=== PATIENT | male | born 1960 | race Caucasian/White ===

== ENCOUNTER 2017-12-22 09:16 | Observation (INO) | payer OTHER ==
[~2017-12-22] VITALS: Ht 162.6 cm; Wt 77.1 kg
--- NOTE | 2017-12-22 12:35 | ED GENERAL ADULT ---
History of Present Illness General Chief Complaint: Neck/Upper Back Pain/Injury Stated Complaint: NECK PAIN/DIZZY Vital Signs & Intake/Output Vital Signs & Intake/Output Vital Signs Date Time Temp Pulse Resp B/P B/P Pulse O2 O2 Flow FiO2 Mean Ox Delivery Rate 12/22 0957 98.0 92 20 185/100 Allergies Coded Allergies: NO KNOWN ALLERGIES (03/19/11) Triage Note: PER PT NECK PAIN FOR A COUPLE WEEKS FEELS LIKE IT SHOOTS UP INTO HEAD AND I BLACK OUT, HAS NOT SEEN MEDICAL HELP FOR SYMPTOMS Past History Travel History Traveled to [place] past 21 day No Medical History Neurological: NONE EENT: NONE Cardiovascular: hypertension Respiratory: NONE Gastrointestinal: NONE Hepatic: NONE Renal: NONE Musculoskeletal: NONE Psychiatric: RECOVERING ADDICT X 20 YR Psychosocial History Who do you live with Patient/Self What is your primary language Citizen Of [place] Tobacco Use: Never used Progress Plan of Care: Orders Procedure Date/time Status EKG 12/22 1234 Active Departure Departure Condition: Stable Referrals: Júnior Arnett MD (PCP/Family) Departure Forms: Customer Survey General Discharge Information
[2017-12-22 13:28] LABS: ABSOLUTE BASOPHIL COUNT 0.1 /CUMM (0.0-0.2); ABSOLUTE EOSINOPHIL COUNT 0 /CUMM (0.0-0.7); ABSOLUTE GRANULOCYTE CT 7.1 /CUMM (1.4-6.5); ABSOLUTE LYMPH COUNT 2.5 /CUMM (1.2-3.4); ABSOLUTE MONOCYTE COUNT 0.6 /CUMM (0.10-0.60); BASOPHIL % 0.5 % (0.0-2.0); EOSINOPHIL % 0.4 % (0-5); GRANULOCYTE % 68.7 % (42.2-75.2); HEMATOCRIT 45.5 % (42-52); MEAN CORPUSCULAR HGB 28.7 PG (27.0-31.0); MEAN CORPUSCULAR VOLUME 84.5 FL (80.0-94.0); MEAN PLATELET VOLUME 8.4 FL (7.4-10.4); PLATELET COUNT 322 /CUMM (130-400); RBC DISTRIBUTION WIDTH 12.8 % (11.5-14.5); RED BLOOD CELL CT 5.39 /CUMM (4.70-6.10); WHITE BLOOD CELL COUNT 10.3 /CUMM (4.8-10.8)
--- NOTE | 2017-12-22 14:45 | ED GENERAL ADULT ---
History of Present Illness General Chief Complaint: Neck/Upper Back Pain/Injury Stated Complaint: NECK PAIN/DIZZY Source: patient Exam Limitations: no limitations Vital Signs & Intake/Output Vital Signs & Intake/Output Vital Signs Date Time Temp Pulse Resp B/P B/P Pulse O2 O2 Flow FiO2 Mean Ox Delivery Rate 12/23 09 78 128/78 12/23 0644 97.8 78 20 128/78 97 Room Air 12/22 1948 97.9 74 129/74 12/22 1852 72 20 131/87 96 Room Air 12/22 1721 89 19 128/71 97 Room Air 12/22 1422 97.8 94 18 149/78 95 ED Intake and Output 12/23 0000 12/22 1200 Intake Total 420 Output Total 275 Balance 145 Intake, Oral 420 Output, Urine 275 Patient 170 lb 170 lb Weight Allergies Coded Allergies: NO KNOWN ALLERGIES (03/19/11) Triage Note: PER PT NECK PAIN FOR A COUPLE WEEKS FEELS LIKE IT SHOOTS UP INTO HEAD AND I BLACK OUT, HAS NOT SEEN MEDICAL HELP FOR SYMPTOMS Triage Nurses Notes Reviewed? yes Onset: Gradual Duration: day(s): Timing: recent history Injury Environment: home Severity: moderate HPI: 57yo male with hx of HTN presents to ED complaining of intermittent posterior neck pain x 1 week. Patient also reports episodes of presyncope and syncope within the past week. Patient states that he experiences lightheadedness, dizziness, neck pain dramatically and twice he has passed out. Patient states that he felt as though he is going to pass out, his vision went dark, he woke up on the ground. Patient has no history of syncope prior to this past week. Patient states that he believes neck pain is related to positional changes at times such as bending down. Patient denies recent head or neck trauma, chest pain, dyspnea, abdominal pain, nausea, vomiting, visual changes. (Emiliana VIZCARRA,Shy Mora) Reconcile Medications Losartan (Cozaar) 100 MG TABLET 1 TAB PO DAILY BP (Reported) (Don HERNANDEZ,Dee) Past History Travel History Traveled to [place] past 21 day No Medical History Any Pertinent Medical History? see below for history Neurological: NONE EENT: NONE Cardiovascular: hypertension Respiratory: NONE Gastrointestinal: NONE Hepatic: NONE Renal: NONE Musculoskeletal: NONE Psychiatric: RECOVERING ADDICT X 20 YR Surgical History Surgical History: non-contributory Psychosocial History Who do you live with Patient/Self What is your primary language Yi Tobacco Use: Never used Family History Hx Contributory? No (Shy Sumner) Review of Systems Review of Systems Constitutional: Reports: see HPI. EENTM: Reports: no symptoms. Respiratory: Reports: no symptoms. Cardiovascular: Reports: see HPI. GI: Reports: no symptoms. Genitourinary: Reports: no symptoms. Musculoskeletal: Reports: see HPI. Skin: Reports: no symptoms. Neurological/Psychological: Reports: see HPI. Hematologic/Endocrine: Reports: no symptoms. Immunologic/Allergic: Reports: no symptoms. All Other Systems: Reviewed and Negative (Shy Sumner) Physical Exam Physical Exam General Appearance: well developed/nourished, no apparent distress, alert, awake Head: atraumatic, normal appearance Eyes: Bilateral: normal appearance, PERRL, EOMI, other (mild anisocoria). Ears, Nose, Throat: normal pharynx, hearing grossly normal Neck: normal inspection, supple, full range of motion, midline tenderness without step offs or deformity Respiratory: normal breath sounds, no respiratory distress, lungs clear Cardiovascular: regular rate/rhythm Peripheral Pulses: 2+ radial (R), 2+ radial (L) Gastrointestinal: normal bowel sounds, soft, non-tender, no organomegaly Back: normal inspection, normal range of motion Extremities: normal inspection, normal range of motion Neurologic/Psych: no motor/sensory deficits, awake, alert, oriented x 3, histopath tech II- XII nml as tested, Cerebellar testing WNL Skin: intact, normal color, warm/dry Core Measures ACS in differential dx? Yes CVA/TIA Diagnosis: No Sepsis Present: No Sepsis Focused Exam Completed? No (Shy Sumner) Progress Differential Diagnoses I considered the following diagnoses in my evaluation of the patient: [ Hypertensive urgency, carotid dissection, vertebrobasillar insufficiency, CVA/ TIA, ACS, PE, valvular disease, orthostatic hypotension, drug intoxication] Plan of Care: Orders Procedure Date/time Status Regular Diet 12/23 B Active Change service to 12/23 0751 Active CBC WITHOUT DIFFERENTIAL 12/23 599 Complete BASIC ELECTROLYTES PLUS BUN&CR 12/23 06 Complete TROPONIN LEVEL 12/23 0300 Complete EKG 12/23 0300 Active ECHOCARDIOGRAM 12/23 UNK Active Teach/Educate 02/05 2022 Active Pain Treatment and Response 12/22 2021 Active Nutritional Intake, Monitor 12/22 2021 Active Isolation 12/22 2021 Active Patient Care Conference 12/22 2021 Active Activity/Ambulation 12/22 2021 Active TROPONIN LEVEL 12/22 1900 Complete Intake & Output 12/22 1848 Active Pathway - chart 12/22 182 Active Code Status 12/22 1821 Active Patient Data 12/22 1653 Active URINE DRUGS OF ABUSE 12/[address] in observation 12/22 162 Active ED Holding Orders 12/22 1621 Active Vital Signs 12/22 1621 Active Code Status 12/22 1621 Complete D-DIMER 12/22 1340 Complete EKG 12/22 1100 Active House Staff 12/22 UNK Active VTE Mechanical Prophylaxis 12/22 UNK Active Vital Signs 12/22 UNK Complete Current Medications Sig/Wang Start time Last Medication Dose Stop Time Status Admin Enoxaparin Sodium 40 MG DAILY 12/23 1000 AC (Lovenox) Losartan Potassium 100 MG DAILY 12/23 1000 AC 12/23 (Cozaar) 0926 Acetaminophen 650 MG Q6P PRN 12/22 1830 AC (Tylenol) Laboratory Tests 12/23/17 0630: Anion Gap 14, Estimated GFR > 60, BUN/Creatinine Ratio 21.1, CBC w Diff NO MAN DIFF REQ, RBC 4.91, MCV 85.2, MCH 28.9, MCHC 34.0, RDW 13.1, MPV 8.5, Gran % 64.2, Lymphocytes % 28.2, Monocytes % 6.1, Eosinophils % 1.1, Basophils % 0.4, Absolute Granulocytes 5.1, Absolute Lymphocytes 2.2, Absolute Monocytes 0.5, Absolute Eosinophils 0.1, Absolute Basophils 0 12/23/17 0300: Troponin I < 0.01 12/22/17 2100: Urine Opiates Screen < 100.00, Methadone Screen < 40, Barbiturate Screen < 60, Ur Phencyclidine Scrn < 6.00, Amphetamines Screen < 100, U Benzodiazepines Scrn < 85, Urine Cocaine Screen < 50, Urine Cannabis Screen < 5.00 12/22/17 2035: Troponin I < 0.01 12/22/17 1340: D-Dimer High Sensitivty < 200 12/22/17 1310: Anion Gap 16, Estimated GFR > 60, BUN/Creatinine Ratio 18.0, Glucose 101 H, Calcium 10.2, Total Bilirubin 0.6, AST 20, ALT 48, Alkaline Phosphatase 132 H, Troponin I < 0.01, Total Protein 7.5, Albumin 4.7, Globulin 2.8, Albumin/ Globulin Ratio 1.7, CBC w Diff NO MAN DIFF REQ, RBC 5.39, MCV 84.5, MCH 28.7, MCHC 34.0, RDW 12.8, MPV 8.4, Gran % 68.7, Lymphocytes % 24.4, Monocytes % 6.0, Eosinophils % 0.4, Basophils % 0.5, Absolute Granulocytes 7.1 H, Absolute Lymphocytes 2.5, Absolute Monocytes 0.6, Absolute Eosinophils 0, Absolute Basophils 0.1 CT/CTA head and neck shows mild atherosclerosis at carotid bifurcation without other acute abnormality. Patient's troponin is negative, d-dimer negative. Remainder of blood work WNL. The patient is neurologically intact, no focal neurologic deficit. Discussed with patient with Dr. Herrera. Recommend telemetry obs given syncopal episodes for futher cardiac work up including repeat EKGs/troponins and echocardiogram. Case management consult obtained. Dr. Ochoa spoke with hospitalist, Dr. Kaminski, regarding this patient's telemetry observation. Diagnostic Imaging: Viewed by Me: CT Scan. Discussed w/RAD: CT Scan. Radiology Impression: PATIENT: EDELMIRA OSBORN PRESENT AGE: 57 PATIENT ACCOUNT NO: [id number] : 56 LOCATION: [facility] ORDERING PHYSICIAN: Shy VIZCARRA SERVICE DATE: 12/22/17 EXAM TYPE: CAT - CT HEAD ANGIOGRAM; CT NECK ANGIOGRAM EXAMINATION: CT ANGIOGRAM NECK WITH CONTRAST CT ANGIOGRAM BRAIN WITH CONTRAST CLINICAL INFORMATION: Posterior neck pain and syncope. COMPARISON: None available. TECHNIQUE: Test bolus sequences followed by intravenous administration 95 mL of Optiray 350. Helical imaging was performed in the axial plane from the thoracic inlet to the skull vertex. Delayed postcontrast imaging of the head was also performed. The data was processed at the dental technologist workstation for generation of MIP sequences. Angled MIPs and volume rendered reformatted images were also generated at an offline 3D workstation. Stenoses are assessed in accordance with NASCET criteria unless otherwise indicated. FINDINGS: BRAIN: There is no intracranial hemorrhage, hydrocephalus, extra-axial surface collection, midline shift, or other herniation pattern. Randolph to white matter differentiation is diffusely maintained without evidence of an evolved acute territorial infarct. The basilar cisterns are preserved. No significant soft tissue abnormality. No acute osseous abnormality. The paranasal sinuses and the mastoid air cells are well-aerated. CERVICAL SOFT TISSUES AND LUNG APICES: The upper lungs are clear. There are no significant soft tissue findings within the neck. NECK CTA: There is a classic 3 vessel configuration of the aortic arch. Proximal arch vessels are non-stenotic. The vertebral arteries are codominant. No significant ostial stenosis is visualized on either side. Both vertebral arteries are widely patent throughout their extracranial cervical course. The common carotid arteries are widely patent. There is mild lipid rich atherosclerotic plaque at the carotid bifurcations bilaterally without significant arterial stenosis. BRAIN CTA: There is normal opacification of major intracranial arteries. No focal flow-limiting stenosis, discrete proximal large artery occlusion, or saccular intradural aneurysm is identified. Timing of the contrast bolus allows assessment of the major dural venous sinuses, which all opacify normally. IMPRESSION: There is mild lipid rich atherosclerotic plaque at the carotid bifurcations bilaterally without significant arterial stenosis. Otherwise unremarkable CTA of the head and neck. No arterial dissection. No acute intracranial findings. DICTATED BY: sOeas Napoles MD DATE/TIME DICTATED:12/22/171454 RRTS:JACK DATE/TIME TRANSCRIBED:12/22/171454 CONFIDENTIAL, DO NOT COPY WITHOUT APPROPRIATE AUTHORIZATION. <Electronically signed in Other Vendor System> SIGNED BY: Oseas Napoles MD 12/22/17 1511 Initial ED EKG: sinus tachycardia @101bpm, nonspecific ST changes Prior EKG: changed (03/19/11) (Emiliana VIZCARRA,Shy Mora) Departure Departure Disposition: STILL A PATIENT Condition: Stable Clinical Impression Primary Impression: Syncope Secondary Impressions: Hypertension, Neck pain Referrals: Júnior Arnett MD (PCP/Family) Departure Forms: Customer Survey General Discharge Information Observation Note Spoke With: Ana Paula Kaminski MD Physician Advisor Notified: VASQUEZ HERNANDEZ,NEEL Soriano Place Patient In: Non-ED OBS Care Area Rationale for Observation: My rational for observation is as follows [syncopal episodes requiring cardiology consult, trend EKGs/troponins, telemetry monitoring, echocardiogram, premature discharge would be medically unsafe.]. (Emiliana VIZCARRA,Shy Mora) PA/SOCIAL SCIENCE MANAGER Co-Sign Statement Statement: ED Attending supervision documentation- [X] I saw and evaluated the patient. I have also reviewed all the pertinent lab results and diagnostic results. I agree with the findings and the plan of care as documented in the PA's/SOCIAL SCIENCE MANAGER's documentation. [X] I have reviewed the ED Record and agree with the PA's/SOCIAL SCIENCE MANAGER's documentation. [] Additions or exceptions (if any) to the PAs/SOCIAL SCIENCE MANAGER's note and plan are summarized below: [] (Don HERNANDEZ,Dee) Critical Care Note Critical Care Note Critical Care Time: non-applicable (Emiliana VIZCARRA,Shy Mora)
--- NOTE | 2017-12-22 15:11 | CT SCAN REPORT ---
EXAMINATION: CT ANGIOGRAM NECK WITH CONTRAST CT ANGIOGRAM BRAIN WITH CONTRAST CLINICAL INFORMATION: Posterior neck pain and syncope. COMPARISON: None available. TECHNIQUE: Test bolus sequences followed by intravenous administration 95 mL of Optiray 350. Helical imaging was performed in the axial plane from the thoracic inlet to the skull vertex. Delayed postcontrast imaging of the head was also performed. The data was processed at the polysomnographic technologist workstation for generation of MIP sequences. Angled MIPs and volume rendered reformatted images were also generated at an offline 3D workstation. Stenoses are assessed in accordance with NASCET criteria unless otherwise indicated. FINDINGS: BRAIN: There is no intracranial hemorrhage, hydrocephalus, extra-axial surface collection, midline shift, or other herniation pattern. Randolph to white matter differentiation is diffusely maintained without evidence of an evolved acute territorial infarct. The basilar cisterns are preserved. No significant soft tissue abnormality. No acute osseous abnormality. The paranasal sinuses and the mastoid air cells are well-aerated. CERVICAL SOFT TISSUES AND LUNG APICES: The upper lungs are clear. There are no significant soft tissue findings within the neck. NECK CTA: There is a classic 3 vessel configuration of the aortic arch. Proximal arch vessels are non-stenotic. The vertebral arteries are codominant. No significant ostial stenosis is visualized on either side. Both vertebral arteries are widely patent throughout their extracranial cervical course. The common carotid arteries are widely patent. There is mild lipid rich atherosclerotic plaque at the carotid bifurcations bilaterally without significant arterial stenosis. BRAIN CTA: There is normal opacification of major intracranial arteries. No focal flow-limiting stenosis, discrete proximal large artery occlusion, or saccular intradural aneurysm is identified. Timing of the contrast bolus allows assessment of the major dural venous sinuses, which all opacify normally. IMPRESSION: There is mild lipid rich atherosclerotic plaque at the carotid bifurcations bilaterally without significant arterial stenosis. Otherwise unremarkable CTA of the head and neck. No arterial dissection. No acute intracranial findings.
--- NOTE | 2017-12-22 16:55 | History & Physical ---
Audrey Sarah MD,[facility] 12/22/17 7514: General Information and HPI MD Statement: I have seen and personally examined EDELMIRA OSBORN and documented this H&P. The patient is a 57 year old M who presented with a patient stated chief complaint of [neck pain and dizziness]. Source of Information: patient History of Present Illness: Patient is a 57-year-old male with past medical history of HTN presented today ED with chief complaint of neck pain and dizziness. Patient reported that during the last 1-2 weeks he had 2-3 episodes of neck pain followed by dizziness the last episode being this morning. Briefly he was repairing an object over the counter with neck in bended poistion when he felt severe pain in the neck. The pain was so severe that he started slowly fell down to her knees, he almost passed for few minutes and woke up over the floor. He denied any head trauma. He reported "warmth" feeling and and seating before the episode, but denied change in vision, smell, shaky motion, incontinence, palpitation, chest pain, heart racing before the episode. He also denied any postictal period. Patient also reported history of fainting after seeing blood sampling several years ago. He noted having a lot of stress at life (cousine being hospice, mom not feeling well, loosing job last month) and that all the episodes happened after loosing the job. He lives alone and denied alcohol intake (he used to suffer from alcohol abuse, but recovered for several years) or smoking. Allergies/Medications Allergies: Coded Allergies: NO KNOWN ALLERGIES (03/19/11) Observation Initial Note - I have personally examined EDELMIRA OSBORN on 12/22/17 at 1750. The disposition of EDELMIRA OSBORN is uncertain at this time and before a determination can be made, he requires a period of observation for the following reasons [neck pain and dizziness] Past History Travel History Traveled to [place] past 21 day No Medical History Neurological: NONE EENT: NONE Cardiovascular: hypertension Respiratory: NONE Gastrointestinal: NONE Hepatic: NONE Renal: NONE Musculoskeletal: NONE Psychiatric: RECOVERING ADDICT X 20 YR Surgical History Surgical History: No related Review of Systems Review of Systems Constitutional: Reports: see HPI. Exam & Diagnostic Data Last 24 Hrs of Vital Signs/I&O Vital Signs Date Time Temp Pulse Resp B/P B/P Pulse O2 O2 Flow FiO2 Mean Ox Delivery Rate 02/05 1721 89 19 128/71 97 Room Air 12/22 1422 97.8 94 18 149/78 95 12/22 1241 Room Air 12/22 0957 98.0 92 20 185/100 Intake & Output 12/22 1600 12/22 0800 12/22 0000 Intake Total Output Total Balance Patient 170 lb Weight Physical Exam General Appearance Alert, Oriented X3, Cooperative, No Acute Distress Skin No Significant Lesion Skin Temp/Moisture Exam: Warm/Dry Sepsis Skin Exam (color): Normal for Ethnicity HEENT Atraumatic, EOMI, Mucous Membr. moist/pink Neck Midline tenderness, over lower cervical upper thoratic spine Cardiovascular Regular Rate, Normal S1, Normal S2 Lungs Clear to Auscultation Abdomen Soft, No Tenderness Neurological Normal Speech, Strength at 5/5 X4 Ext, Cranial Nerves 3-12 NL Extremities No Edema Last 24 Hrs of Labs/Leon: Laboratory Tests 12/22/17 1340: D-Dimer High Sensitivty < 200 12/22/17 1310: Anion Gap 16, Estimated GFR > 60, BUN/Creatinine Ratio 18.0, Glucose 101 H, Calcium 10.2, Total Bilirubin 0.6, AST 20, ALT 48, Alkaline Phosphatase 132 H, Troponin I < 0.01, Total Protein 7.5, Albumin 4.7, Globulin 2.8, Albumin/ Globulin Ratio 1.7, CBC w Diff NO MAN DIFF REQ, RBC 5.39, MCV 84.5, MCH 28.7, MCHC 34.0, RDW 12.8, MPV 8.4, Gran % 68.7, Lymphocytes % 24.4, Monocytes % 6.0, Eosinophils % 0.4, Basophils % 0.5, Absolute Granulocytes 7.1 H, Absolute Lymphocytes 2.5, Absolute Monocytes 0.6, Absolute Eosinophils 0, Absolute Basophils 0.1 Assessment/Plan Assessment: 57 Y M with presented neck pain and loss of consciousness Associated with sweating and feeling warm PMH: HTN, fainting after seeing blood drawn VS, Ph Ex at admission: BP 185/100 (later 149/58) CO 92, no fever, RR 20 Labs at admission: CBCs significant, BEP insignificant, U tox pending Imagings at admission: Head/Neck CTA: There is mild lipid rich atherosclerotic plaque at the carotid bifurcations bilaterally without significant arterial stenosis. Otherwise unremarkable CTA of the head and neck. No arterial dissection. No acute intracranial findings. Patient was placed under observation telemetry floor for management of following conditions: Syncope Vasovagal the setting of severe pain Patient didn't report any symptoms suggestive of cardiac reasons (palpitation chest pain heart tracing) or seizure (no postictal, no incontinence, no jerky motion) The fact that syncope happened after severe pain so is suggestive of vasovagal syncope. At the same time we will rule out any cardiac structural/ACS pathologies, we will also monitor patient in telemetry floor. -Admit to telemetry floor -I/O, vital signs, orthostatic vital signs -EKG and troponin serial (11pm and 3AM) -Echocardiography -Cardio consult -Follow Utox Neckpain We will administer pain medications in the hospital with recommendations to follow in outpatient -Follow outpatient -Consider MRI in outpatient Chronic medical condition: HTN We will continue home medication -Continue lisinopril FC Regular diet DVT PpX: PHARMACOLOGICAL AND As Ranked By This Provider Problem List: 1. Syncope 2. Neck pain Core Measures/Misc (08/03) Acute Coronary Syndrome ACS Diagnosis: No Congestive Heart Failure Congestive Heart Failure Diagnosis No Cerebrovascular Accident CVA/TIA Diagnosis: No VTE (View Protocol) VTE Risk Factors Age>40 No Mechanical VTE Prophylaxis d/t N/A MechProphylax Ordered No VTE Pharm Prophylaxis d/t NA PharmProphylax ordered Sepsis (View protocol) Sepsis Present: No Maximilian Bloom 12/22/17 7194: General Information and HPI Allergies/Medications Home Med list Losartan (Cozaar) 100 MG TABLET 1 TAB PO DAILY BP (Reported) Resident Review Statement Resident Statement: examined this patient, discussed with internet specialist, agreed with internet specialist, discussed with family, reviewed EMR data (avail), reviewed images, amended to note Other Findings: 57-year-old man with past medical history of long standing hypertension, alcohol overuse 20-year-ago presented with episodes of syncope associated with feelings of extreme warmth and sharp pain in his neck, likely representing a vasovagal episode. Etiologies like orthostatic, arrhythmia associated or situational syncope unlikely based on history and vital signs. Patient to be placed in observation on telemetry, any ischemic event to be ruled out with serial troponins and EKG. Echocardiogram to rule out any structural heart disease. Cardiac monitoring to rule out any arrhythmias. Further workup regarding cardiac monitoring/loop recording per cardiology as outpatient. Psychiatry consult for assessment and coping mechanisms for ongoing work related stressors. Cardiology Evaluation. Full code. Lovenox for DVT prophylaxis. Regular diet. Ana Paula Kaminski 12/23/17 1356: Attending MD Review Statement Attending Statement Attending MD Statement: examined this patient, discuss w/resident/PA/VENTILATION WORKER, agreed w/resident/PA/VENTILATION WORKER, reviewed EMR data (avail), discussed with nursing, discussed with case mgmt Attending Assessment/Plan: agree with the above assessment and plan. please see my separate attending note for more details.
--- NOTE | 2017-12-22 18:04 | Cons- Cardiology ---
General Information and HPI Consulting Request Date of Consult: 12/22/17 Requested By: Ana Paula Kaminski MD Reason for Consult: Recurrent syncopal episodes Source of Information: patient Exam Limitations: no limitations History of Present Illness: The patient is a 57-year-old man who was been generally healthy. He describes several episodes over the past week or 2 where he develops pain in the back of his neck shooting up to the vertex of his head associated with dizziness. On at least 2 occasions he had a danni syncopal episode associated with this. On one episode he sat down and was able to avoid passing out. He's never had previous syncopal episodes. He denies any other cardiac complaints including chest pain, shortness of breath, palpitations. The patient has hypertension and is on losartan only. He used to smoke and drink alcohol but not for 20 years. His last episode was about 2 days ago. He states he rested all day yesterday and decided to get checked out today. He is feeling okay today. Allergies/Medications Allergies: Coded Allergies: NO KNOWN ALLERGIES (03/19/11) Home Med List: Losartan (Cozaar) 100 MG TABLET 1 TAB PO DAILY BP (Reported) Review of Systems Review of Systems: He has no other complaints in the review of systems Past History Travel History Traveled to [place] past 21 day No Medical History Neurological: NONE EENT: NONE Cardiovascular: hypertension Respiratory: NONE Gastrointestinal: NONE Hepatic: NONE Renal: NONE Musculoskeletal: NONE Psychiatric: RECOVERING ADDICT X 20 YR Surgical History Surgical History: none Exam & Diagnostic Data Vital Signs and I&O Vital Signs Date Time Temp Pulse Resp B/P B/P Pulse O2 O2 Flow FiO2 Mean Ox Delivery Rate 12/22 1721 89 19 128/71 97 Room Air 12/22 1422 97.8 94 18 149/78 95 12/22 1241 Room Air 12/22 0957 98.0 92 20 185/100 Intake & Output 12/22 1600 12/22 0800 12/22 0000 12/21 1600 12/21 0000 Intake Total Output Total Balance Patient 170 lb Weight Physical Exam: On exam he is a middle-aged man in no acute distress HEENT exam is normal Chest is clear Heart regular rhythm, no murmurs Abdomen benign Extremities good pulses no edema Labs/Leon Results: Laboratory Tests 12/22 12/22 1340 1310 Chemistry Sodium (137 - 145 mmol/L) 145 Potassium (3.5 - 5.1 mmol/L) 4.3 Chloride (98 - 107 mmol/L) 103 Carbon Dioxide (22 - 30 mmol/L) 25 Anion Gap (5 - 16) 16 BUN (9 - 20 mg/dL) 18 Creatinine (0.7 - 1.2 mg/dL) 1.0 Estimated GFR (>60 ml/min) > 60 BUN/Creatinine Ratio (7 - 25 %) 18.0 Glucose (65 - 99 mg/dL) 101 H Calcium (8.4 - 10.2 mg/dL) 10.2 Total Bilirubin (0.2 - 1.3 mg/dL) 0.6 AST (17 - 59 U/L) 20 ALT (21 - 72 U/L) 48 Alkaline Phosphatase (< 127 U/L) 132 H Troponin I (<0.11 ng/ml) < 0.01 Total Protein (6.3 - 8.2 g/dL) 7.5 Albumin (3.5 - 5.0 g/dL) 4.7 Globulin (1.9 - 4.2 gm/dL) 2.8 Albumin/Globulin Ratio (1.1 - 2.2 %) 1.7 Coagulation D-Dimer High Sensitivty (0 - 243 ng/ml) < 200 Hematology CBC w Diff NO MAN DIFF REQ WBC (4.8 - 10.8 /CUMM) 10.3 RBC (4.70 - 6.10 /CUMM) 5.39 Hgb (14.0 - 18.0 G/DL) 15.5 Hct (42 - 52 %) 45.5 MCV (80.0 - 94.0 FL) 84.5 MCH (27.0 - 31.0 PG) 28.7 MCHC (33.0 - 37.0 G/DL) 34.0 RDW (11.5 - 14.5 %) 12.8 Plt Count (130 - 400 /CUMM) 322 MPV (7.4 - 10.4 FL) 8.4 Gran % (42.2 - 75.2 %) 68.7 Lymphocytes % (20.5 - 51.1 %) 24.4 Monocytes % (1.7 - 9.3 %) 6.0 Eosinophils % (0 - 5 %) 0.4 Basophils % (0.0 - 2.0 %) 0.5 Absolute Granulocytes (1.4 - 6.5 /CUMM) 7.1 H Absolute Lymphocytes (1.2 - 3.4 /CUMM) 2.5 Absolute Monocytes (0.10 - 0.60 /CUMM) 0.6 Absolute Eosinophils (0.0 - 0.7 /CUMM) 0 Absolute Basophils (0.0 - 0.2 /CUMM) 0.1 Diagnostic Data EKG Results EKG shows sinus tachycardia rate 101 with some inferolateral nonspecific T-wave abnormalities. CXR Results Not done Other Results IMPRESSION: There is mild lipid rich atherosclerotic plaque at the carotid bifurcations bilaterally without significant arterial stenosis. Otherwise unremarkable CTA of the head and neck. No arterial dissection. No acute intracranial findings. DICTATED BY: Oseas Napoles MD DATE/TIME DICTATED:12/22/171454 TRIBAL JUDGE:JACK DATE/TIME TRANSCRIBED:12/22/171454 CONFIDENTIAL, DO NOT COPY WITHOUT APPROPRIATE AUTHORIZATION. <Electronically signed in Other Vendor System> SIGNED BY: Oseas Napoles MD 12/22/17 1510 Assessment/Plan Assessment/Plan This patient presents with episodes of the neck and head pain associated with weakness, dizziness and at least two danni syncopal episodes. He has nonspecific EKG changes, negative enzymes 1. His routine labs are all normal. I think this patient deserves a period of observation on the monitor to see if he's having any arrhythmias that may account for his syncopal episode. Otherwise neurologic etiology should be considered. Echocardiogram will be useful because of the abnormal EKG. Consult Acknowledgment - Thank you for your consult request.
--- NOTE | 2017-12-22 18:11 | PN- Att Addend ---
Attending MD Review Statement Attending Statement Attending MD Statement: examined this patient, discuss w/resident/PA/[employer], agreed w/resident/PA/[employer], reviewed EMR data (avail), discussed w/nursing, discussed w/ case mgmt Attending Assessment/Plan: Laboratory Tests 12/22/17 1340: D-Dimer High Sensitivty < 200 12/22/17 1310: Anion Gap 16, Estimated GFR > 60, BUN/Creatinine Ratio 18.0, Glucose 101 H, Calcium 10.2, Total Bilirubin 0.6, AST 20, ALT 48, Alkaline Phosphatase 132 H, Troponin I < 0.01, Total Protein 7.5, Albumin 4.7, Globulin 2.8, Albumin/ Globulin Ratio 1.7, CBC w Diff NO MAN DIFF REQ, RBC 5.39, MCV 84.5, MCH 28.7, MCHC 34.0, RDW 12.8, MPV 8.4, Gran % 68.7, Lymphocytes % 24.4, Monocytes % 6.0, Eosinophils % 0.4, Basophils % 0.5, Absolute Granulocytes 7.1 H, Absolute Lymphocytes 2.5, Absolute Monocytes 0.6, Absolute Eosinophils 0, Absolute Basophils 0.1 Vital Signs Date Time Temp Pulse Resp B/P B/P Pulse O2 O2 Flow FiO2 Mean Ox Delivery Rate 12/22 1721 89 19 128/71 97 Room Air 12/22 1422 97.8 94 18 149/78 95 12/22 1241 Room Air 12/22 0957 98.0 92 20 185/100 57 yr old male with pmh of HTN and 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 Pt says he gets sharp pain in the neck alongwith a feeling of warmth and then feels like he is going to pass out. Pt passed out once but denies any tongue bites, any bowel or bladder incontinence. Pt says he recently lost his job on Nov 27 . he was working as a food quality tester in [place]. Pt has been recently stressed as his mother is not~ doing well over the last one month and one of his cousin was placed on Hospice for terminal cancer. Pt denies any chest pain or sob or palpitations. Denies any other complaints. Denies any drug use. A/P- Syncopal episode- will observe on telemetry. Cardiology dr Davis consulted , ekg and trop done in ER ok. Will do serial trops. Will get EKG in am. Will do echo. Given the recent stress we will consult psychiatry. Looks more likely vasovagal. CTA head and neck was wnl. Will get urine tox. HTN uncontrolled- will f/u on bp and adjust his meds. d/w pt the care plan.
[2017-12-23 06:44] VITALS: BP 128/78
[2017-12-23 07:54] LABS: ABSOLUTE BASOPHIL COUNT 0 /CUMM (0.0-0.2); ABSOLUTE EOSINOPHIL COUNT 0.1 /CUMM (0.0-0.7); ABSOLUTE GRANULOCYTE CT 5.1 /CUMM (1.4-6.5); ABSOLUTE LYMPH COUNT 2.2 /CUMM (1.2-3.4); ABSOLUTE MONOCYTE COUNT 0.5 /CUMM (0.10-0.60); BASOPHIL % 0.4 % (0.0-2.0); EOSINOPHIL % 1.1 % (0-5); GRANULOCYTE % 64.2 % (42.2-75.2); HEMATOCRIT 41.8 % (42-52); MEAN CORPUSCULAR HGB 28.9 PG (27.0-31.0); MEAN CORPUSCULAR VOLUME 85.2 FL (80.0-94.0); MEAN PLATELET VOLUME 8.5 FL (7.4-10.4); PLATELET COUNT 272 /CUMM (130-400); RBC DISTRIBUTION WIDTH 13.1 % (11.5-14.5); RED BLOOD CELL CT 4.91 /CUMM (4.70-6.10); WHITE BLOOD CELL COUNT 7.9 /CUMM (4.8-10.8)
[2017-12-23] MEDS ORDERED: COZAAR100 M1 PO (09:45)
--- NOTE | 2017-12-23 11:04 | PN- Cardiology ---
Subjective Subjective: The patient is feeling okay today. He is not having any headache, dizziness, syncope. There've been no arrhythmias on the monitor. His enzymes are negative Objective Vital Signs and I&Os Vital Signs Date Time Temp Pulse Resp B/P B/P Pulse O2 O2 Flow FiO2 Mean Ox Delivery Rate 12/23 925 78 128/78 12/23 0644 97.8 78 20 128/78 97 Room Air 12/22 1948 97.9 74 129/74 12/22 1852 72 20 131/87 96 Room Air 12/22 1721 89 19 128/71 97 Room Air 12/22 1422 97.8 94 18 149/78 95 12/22 1241 Room Air Intake & Output 12/23 1600 12/23 0800 12/23 0000 12/22 1600 12/22 0800 12/22 0000 Intake Total 420 Output Total 275 Balance 145 Intake, Oral 420 Output, Urine 275 Patient 170 lb 170 lb Weight Physical Exam: He is in no distress and in a good mood. HEENT exam is normal Neck veins not distended Carotids normal Chest clear Heart regular rhythm, no murmurs Extremities okay Current Medications: Current Medications Sig/Wang Start time Last Medication Dose Route Stop Time Status Admin Acetaminophen 650 MG Q6P PRN 12/22 1830 AC PO Enoxaparin Sodium 40 MG DAILY 12/23 1000 AC SC Losartan Potassium 100 MG DAILY 12/23 1000 AC 12/23 PO 0926 Results Last 48 Hrs of Labs/Mics: Laboratory Tests 12/23/17 0630: Anion Gap 14, Estimated GFR > 60, BUN/Creatinine Ratio 21.1, CBC w Diff NO MAN DIFF REQ, RBC 4.91, MCV 85.2, MCH 28.9, MCHC 34.0, RDW 13.1, MPV 8.5, Gran % 64.2, Lymphocytes % 28.2, Monocytes % 6.1, Eosinophils % 1.1, Basophils % 0.4, Absolute Granulocytes 5.1, Absolute Lymphocytes 2.2, Absolute Monocytes 0.5, Absolute Eosinophils 0.1, Absolute Basophils 0 12/23/17 0300: Troponin I < 0.01 12/22/17 2100: Urine Opiates Screen < 100.00, Methadone Screen < 40, Barbiturate Screen < 60, Ur Phencyclidine Scrn < 6.00, Amphetamines Screen < 100, U Benzodiazepines Scrn < 85, Urine Cocaine Screen < 50, Urine Cannabis Screen < 5.00 12/22/17 2035: Troponin I < 0.01 12/22/17 1340: D-Dimer High Sensitivty < 200 12/22/17 1310: Anion Gap 16, Estimated GFR > 60, BUN/Creatinine Ratio 18.0, Glucose 101 H, Calcium 10.2, Total Bilirubin 0.6, AST 20, ALT 48, Alkaline Phosphatase 132 H, Troponin I < 0.01, Total Protein 7.5, Albumin 4.7, Globulin 2.8, Albumin/ Globulin Ratio 1.7, CBC w Diff NO MAN DIFF REQ, RBC 5.39, MCV 84.5, MCH 28.7, MCHC 34.0, RDW 12.8, MPV 8.4, Gran % 68.7, Lymphocytes % 24.4, Monocytes % 6.0, Eosinophils % 0.4, Basophils % 0.5, Absolute Granulocytes 7.1 H, Absolute Lymphocytes 2.5, Absolute Monocytes 0.6, Absolute Eosinophils 0, Absolute Basophils 0.1 Assessment/Plan Assessment/Plan The patient is stable at this time. Does not appear that the there is a cardiac etiology to his episodes. They are likely vasovagal or possibly neurologic although his neurologic exam is normal. I recommend ambulating the patient. If he is stable and his echocardiogram does not show any significant abnormalities he can be discharged. Continue telemetry? No
--- NOTE | 2017-12-23 11:50 | PN-Observation ---
See Addendum Observation Note Observation Note _ I have personally examined EDELMIRA OSBORN. him disposition is uncertain at this time. Before a determination can be made, he requires continued observation for the following reasons [syncope]. Assessment/Plan Assessment: 57 Y M with presented neck pain and loss of consciousness Associated with sweating and feeling warm PMH: HTN, fainting after seeing blood drawn VS, Ph Ex at admission: BP 185/100 (later 149/58) CT 92, no fever, RR 20 Labs at admission: CBCs significant, BEP insignificant, U tox pending Imagings at admission: Head/Neck CTA: There is mild lipid rich atherosclerotic plaque at the carotid bifurcations bilaterally without significant arterial stenosis. Otherwise unremarkable CTA of the head and neck. No arterial dissection. No acute intracranial findings. Patient was placed under observation telemetry floor for management of following conditions: Syncope Vasovagal the setting of severe pain Patient didn't report any symptoms suggestive of cardiac reasons (palpitation chest pain heart tracing) or seizure (no postictal, no incontinence, no jerky motion) The fact that syncope happened after severe pain so is suggestive of vasovagal syncope. Patient was monitored in telemetry, no events overnight. -EKG and troponin serial were done and ACS was ruled out. Echocardio: Normal left ventricular size, wall thickness and systolic function with no obvious regional wall motion abnormalities. Abnormal relaxation filling pattern of the left ventricle for age (stage 1 diastolic dysfunction). The left atrium is normal in size. No significant valve abnormalities. Unable to estimate the right ventricular systolic pressure. She was stable to be discharged with recommendation below. Neckpain We will administer pain medications in the hospital with recommendations to follow in outpatient -Follow outpatient -Consider MRI in outpatient Chronic medical condition: HTN We continued home medication -Continue lisinopril FC Regular diet DVT PpX: PHARMACOLOGICAL AND Patient was discharged with recommendations below: Please follow with your PCP within one week of discharge. Please come back to hospital if symptoms worsen. Problem List: 1. Syncope 2. Neck pain Plan: as noted above DVT/Prophylaxis: mechanical, pharmacological Discharge Plan Discharge Disposition: home Stable for Discharge? Yes Anticipated Discharge (Day): today Subjective Follow-up For: Syncope Tele-Events Since Last Visit: SR 69-94 Subjective: Patient visited today, was lying in bed comfortably in no acute distress, was alert and oriented. No fever or chills, no shortness of breathing, no chest pain, no other events. Patient was stable to be discharged with most likely vasovagal syncope. Patient was discharged with recommendations below. Review of Systems Constitutional: Reports: see HPI. Objective Last 24 Hrs of Vital Signs/I&O Vital Signs Date Time Temp Pulse Resp B/P B/P Pulse O2 O2 Flow FiO2 Mean Ox Delivery Rate 12/23 1357 99.3 96 18 148/88 94 Room Air 12/23 0926 78 128/78 12/23 0644 97.8 78 20 128/78 97 Room Air 12/22 1948 97.9 74 129/74 Intake & Output 12/23 1600 12/23 0800 12/23 0000 Intake Total 650 420 Output Total 275 Balance 650 145 Intake, Oral 650 420 Output, Urine 275 Patient 170 lb Weight Physical Exam General Appearance: Alert, Oriented X3, Cooperative, No Acute Distress Skin: No Significant Lesion Skin Temp/Moisture Exam: Warm/Dry Sepsis Skin Exam (color): Normal for Ethnicity HEENT: Atraumatic, EOMI, Mucous Membr. moist/pink Cardiovascular: Regular Rate, Normal S1, Normal S2 Lungs: Clear to Auscultation Abdomen: Normal Bowel Sounds, Soft, No Tenderness Neurological: Normal Speech Extremities: No Edema Current Medications: Current Medications Sig/Wang Start time Last Medication Dose Route Stop Time Status Admin Acetaminophen 650 MG Q6P PRN 12/22 1830 DCD PO Enoxaparin Sodium 40 MG DAILY 12/23 1000 DCD SC Losartan Potassium 100 MG DAILY 12/23 1000 DCD 12/23 PO 0926
--- NOTE | 2017-12-23 13:43 | Patient Discharge Instructions ---
Discharge Instructions General Discharge Information You were seen/treated for: Syncope Neck pain Watch for these problems: Severe chest pain, dizziness, lightheadedness, neck pain, headache, chest pain, palpitation, hear racing, shortness of breathing or worsening of any other symptoms Special Instructions: Please follow with your PCP within one week of discharge. Please come back to hospital if symptoms worsen. Diet Continue normal diet: Yes Activity Full Activity/No Limits: No Activity Self Limited: Yes Acute Coronary Syndrome Inclusion Criteria At DC or during hospital stay patient has or had the following: ACS DIAGNOSIS No Discharge Core Measures Meds if any: Prescribed or Continued at Discharge Meds if any: NOT Prescribed or Continued at Discharge Congestive Heart Failure Inclusion Criteria At DC or during hospital stay patient has or had the following: CHF DIAGNOSIS No Discharge Core Measures Meds if any: Prescribed or Continued at Discharge Meds if any: NOT Prescribed or Continued at Discharge Cerebrovascular accident Inclusion Criteria At DC or during hospital stay patient has or had the following: CVA/TIA Diagnosis No Discharge Core Measures Meds if any: Prescribed or Continued at Discharge Meds if any: NOT Prescribed or Continued at Discharge Venous thromboembolism Inclusion Criteria VTE Diagnosis No VTE Type NONE VTE Confirmed by (Test) NONE Discharge Core Measures - Per Current guidelines, there needs to be overlap - treatment for the first 5 days of Warfarin therapy. - If discharged on Warfarin prior to 5 days of - overlap therapy, the patient will need to be - assessed for post discharge needs including - *Post discharge parental anticoagulation - *Warfarin and/or parental anticoagulation education - *Follow up date to check INR post discharge At least 5 days overlap therapy as Inpatient No Meds if any: Prescribed or Continued at Discharge Note: Overlap Therapy is Warfarin and Anticoagulant Meds if any: NOT Prescribed or Continued at Discharge
[2017-12-23 13:57] VITALS: BP 148/88
--- NOTE | 2017-12-23 16:46 | ECHOCARDIOGRAM REPORT ---
EDELMIRA OSBORN Age: 57 : 1960 Gender: M Exam Date: 12/23/2017 13:43 Exam Location: [address] Ht (in): 64 Wt (lb): 170 BSA: 1.89 BP: 128 / 78 Ordering Physician: Maximilian Bloom MD Referring Physician: Osman Davis MD Chief, SoC Technologist: Karissa Benoit [facility] Room Number: [id number] Indications: LIGHTHEADEDNESS Rhythm: Sinus Technical Quality: Fair FINDINGS Left Ventricle Normal left ventricular size, wall thickness and systolic function with no obvious regional wall motion abnormalities. The ejection fraction is visually estimated at >65 %. Abnormal relaxation filling pattern of the left ventricle for age (stage 1 diastolic dysfunction). Right Ventricle The right ventricle is normal in size and function. Right Atrium The right atrium is normal in size. Left Atrium The left atrium is normal in size. The interatrial septum is intact. Mitral Valve The mitral valve is normal in structure and function. There is no mitral regurgitation. Aortic Valve Structurally normal aortic valve without significant sclerosis or stenosis. There is no aortic regurgitation. Tricuspid Valve The tricuspid valve is normal in structure and function. There is no tricuspid regurgitation. Unable to estimate the right ventricular systolic pressure. Pulmonic Valve Structurally normal pulmonic valve. There is trace pulmonic regurgitation. Pericardium Normal pericardium without effusion. No pleural effusion. Great Vessels Normal aortic root dimension. The aortic arch and great vessels are well seen and are normal. CONCLUSIONS Normal left ventricular size, wall thickness and systolic function with no obvious regional wall motion abnormalities. Abnormal relaxation filling pattern of the left ventricle for age (stage 1 diastolic dysfunction). The left atrium is normal in size. No significant valve abnormalities. Unable to estimate the right ventricular systolic pressure. Osman Davis M.D. (Electronically Signed) Final Date: 23 December 2017 16:46 MEASUREMENTS (Male / Female) Normal Values 2D ECHO LV Diastolic Diameter PLAX 3.8 cm 4.2 - 5.9 / 3.9 - 5.3 cm LV Systolic Diameter PLAX 2.5 cm 2.1 - 4.0 cm LV Fractional Shortening PLAX 34.2 % 25 - 46 % LV Ejection Fraction 2D Teich 64.0 % IVS Diastolic Thickness 0.9 cm LVPW Diastolic Thickness 0.8 cm LV Relative Wall Thickness 0.4 RV Internal Dim ED PLAX 3.1 cm 1.9 - 3.8 cm LVOT Diameter 2.1 cm Aortic Root Diameter 2.7 cm LA Volume 16.0 cm 18 - 58 / 22 - 52 cm Ascending Aorta Diameter 2.6 cm DOPPLER AV Peak Velocity 108.0 cm/s AV Peak Gradient 4.7 mmHg AV Mean Velocity 76.7 cm/s AV Mean Gradient 3.0 mmHg AV Velocity Time Integral 19.6 cm LVOT Peak Velocity 85.2 cm/s LVOT Peak Gradient 2.9 mmHg LVOT Mean Velocity 59.0 cm/s LVOT Mean Gradient 2.0 mmHg LVOT Velocity Time Integral 15.5 cm LVOT Stroke Volume 53.7 cm AV Area Cont Eq vti 2.7 cm AV Area Cont Eq pk 2.7 cm MV Peak Velocity 85.7 cm/s MV Peak Gradient 2.9 mmHg MV Mean Velocity 50.3 cm/s MV Mean Gradient 1.0 mmHg Mitral E Point Velocity 59.2 cm/s Mitral A Point Velocity 78.0 cm/s Mitral E to A Ratio 0.8 MV PHT Velocity 69.5 cm/s MV Deceleration Gilliam 300.0 cm/s MV Pressure Half Time 69.5 ms MV Area PHT 3.2 cm MV Deceleration Time 198.0 ms PV Peak Velocity 177.0 cm/s PV Peak Gradient 12.5 mmHg PV Mean Velocity 106.0 cm/s PV Mean Gradient 5.0 mmHg PV Velocity Time Integral 29.4 cm LV E' Lateral Velocity 7.6 cm/s Mitral E to LV E' Lateral Ratio 7.8 LV E' Septal Velocity 5.0 cm/s Mitral E to LV E' Septal Ratio 11.9
== END 2017-12-23 17:25 ==
LOC: ERH 09:16 → 1NO 16:21 → ERHI 16:21 → ENRESERV 18:49 → ENTRNSPT 19:44 → EDTRNSPT 19:57 → EDTRNSPTSTS 19:57 → EDTRNSPT 20:05 → 1NO 20:14 → CMPTRNSPT 20:39 → 1NO 12-23 08:22 → ENTRNSPT 12-23 17:19 → EDTRNSPTSTS 12-23 17:23 → EDTRNSPT 12-23 17:23 → 1NO 12-23 17:25 → EDTRNSPT 12-23 17:38 → CMPTRNSPT 12-23 18:18
PROVIDERS: Internal Medicine Hematology & Oncology; Physician Assistant
DX: R55 Syncope and collapse (principal); I10 Essential (primary) hypertension; M54.2 Cervicalgia; Z87.891 Personal history of nicotine dependence; R42 Dizziness and giddiness
CPT/HCPCS: 6020; 36415; 80307; 82436; 93005; 93010; 93306; G0378; J1650; J3490